=== PATIENT | female | born 1930 | race Caucasian/White ===

== ENCOUNTER 2017-05-01 08:01 | Outpatient (CLI) | payer OTHER ==
--- NOTE | 2017-05-01 08:44 | US ---
EXAM: Renal ultrasound. History: Chronic kidney disease and hypertension. Comparison: CT abdomen pelvis 10/23/2015 Technique: Multiple sonographic images through the kidneys were obtained. Color duplex Doppler was used to interrogate vascular flow. Findings: The right kidney measures 10.7 cm in long length demonstrating increased cortical echogenicity witho ut evidence for hydronephrosis, mass or shadowing calculus. Question trace fluid adjacent to the ri ght kidney. The left kidney measures 10 cm in long length demonstrating increased cortical echogenicity without evidence for hydronephrosis, mass or shadowing calculus. Impression: 1. Increased cortical echogenicity of bilateral kidneys suggesting medical renal disease. 2. No hydronephrosis.
== END 2017-05-01 08:02 | disposition home or self-care (01) ==
LOC: RAD 08:01
PROVIDERS: ATTEND Specialist
DX: N18.2 Chronic kidney disease, stage 2 (mild) (principal); I10 Essential (primary) hypertension
CPT/HCPCS: 76770